=== PATIENT | male | born 1950 | race Caucasian/White ===

== ENCOUNTER 2016-08-30 13:37 | Emergency (ER) | payer OTHER ==
[~2016-08-30] VITALS: Ht 175.3 cm; Wt 90.2 kg
[2016-08-30] MEDS ORDERED: MOTRIN800 MG PO (17:08)
[2016-08-30] MEDS ORDERED: NORCO 7.5/321 TABLET PO (17:08)
[2016-08-30 18:06] VITALS: BP 142/88
== END 2016-08-30 18:00 | disposition home or self-care (01) ==
LOC: EME 13:37
DX: S83.501A Sprain of unspecified cruciate ligament of right knee, initial encounter (principal); W17.89XA Other fall from one level to another, initial encounter
CPT/HCPCS: 73564; 93971; 99281; 99284